=== PATIENT | female | born 1960 | race Caucasian/White ===

== ENCOUNTER 2021-04-26 10:59 | Emergency (ER) | payer OTHER ==
[~2021-04-26 10:59] MED LIST: ZOFRAN4 MG PO
[2021-04-26] MEDS ORDERED: CEPHALEXIN500 MG PO (14:29)
== END 2021-04-26 14:48 | disposition home or self-care (01) ==
LOC: FER 10:59
DX: L03.116 Cellulitis of left lower limb (principal); L03.115 Cellulitis of right lower limb; Z88.0 Allergy status to penicillin
CPT/HCPCS: 93971

== ENCOUNTER 2022-01-19 20:01 | Emergency (ER) | payer OTHER ==
[~2022-01-19 20:01] MED LIST changes: +CEPHALEXIN500 MG PO
[2022-01-19] MEDS ORDERED: BACTRIM DS TAB1 EACH PO (20:17)
[2022-01-19] MEDS ORDERED: VIBRAMYCIN100 MG PO (20:17)
== END 2022-01-19 21:04 | disposition home or self-care (01) ==
LOC: FER 20:01
DX: S61.452A Open bite of left hand, initial encounter (principal); L03.114 Cellulitis of left upper limb; I10 Essential (primary) hypertension; Z88.0 Allergy status to penicillin; W57.XXXA Bitten or stung by nonvenomous insect and other nonvenomous arthropods, initial encounter
CPT/HCPCS: 99281